=== PATIENT | female | born 1995 | race Caucasian/White ===

== ENCOUNTER 2022-02-02 10:52 | Emergency (ER) | payer OTHER, SELFPAY ==
[2022-02-02 11:07] VITALS: BP 122/74; PULSE 84; RESP 20; TEMP 36.8; O2SAT 99; BMI 22.1
[2022-02-02 11:14] LABS: Coronavirus 19, PCR Not Detected (NotDetected); Influenza A, PCR Not Detected (NotDetected); Influenza B, PCR Not Detected (NotDetected)
[2022-02-02 11:23] LABS: Strep Scrn Group A (Rapid) Negative (Negative)
--- NOTE | 2022-02-02 11:27 | [facility].EDGENADL ---
Discharge Plan Disposition Patient Disposition: Home, Self-Care Condition: Good Referrals Follow up/Referrals: Tommie Chan MD [Primary Care Provider] - See instructions Activity Restrictions/Add. Instructions Additional Instructions/Restrictions: Tylenol or ibuprofen for pain or fever. Follow-up with primary care provider if not improving within 1 week. Additional instructions for UPPER RESPIRATORY INFECTION: See your physician if not improving in 3-4 days or if worsening. Rest and drink plenty of fluids. Return immediately if you have an uncontrollable fever greater than 104 degrees, difficulty breathing or shortness of breath, persistent vomiting, or inability to swallow. Clinical Impressions Clinical Impression: Upper respiratory infection, viral Instructions Patient Instructions: DI for Viral Upper Respiratory Infection -- Adult Discharge ED Provider: Thanh Kennedy General Adult HPI General Chief complaint: Upper Respiratory Infection Stated complaint: sore throat, cough Time Seen by Provider: 02/02/22 11:15 Mode of Arrival: Ambulatory Source of Information: Patient Limitations: No Limitations Description of Symptoms (Recalled from ER Triage Doc. by RN): pt to ed c/o cough and runny nose x1 week History of Present Illness HPI narrative: The patient is being seen along with 2 of her children, all 3 having upper respiratory infection symptoms. The patient complains of a sore throat. No fever. She says that her brother tested positive for flu and COVID last week and she was exposed to him. Related Data Allergies Allergy/AdvReac Type Severity Reaction Status Date / Time No Known Allergies Allergy Verified 02/02/22 11:10 PFSH PFSH Social History Smoking Status: Never smoker ROS Obtained: Yes Systems reviewed as appropriate & no additional complaints except as documented Constitutional Constitutional: Denies fever(s) ENT Ears, Nose, Mouth, and Throat: Denies nasal discharge and Reports sore throat Physical Exam General General appearance: alert and in no apparent distress Head Head exam: atraumatic and normocephalic Eye Eye exam: Present normal appearance and EOMI; Absent conjunctival injection ENT ENT exam: Present normal oropharynx, mucous membranes moist and TM's normal bilaterally Neck Neck exam: Present normal inspection and trachea midline Chest Chest inspection: Present normal inspection and symmetric chest wall rise Respiratory Respiratory exam: Present normal lung sounds bilaterally; Absent respiratory distress Cardiovascular Cardiovascular exam: Present regular rate Neurological Exam Neurological exam: Present alert and oriented X3 Psychiatric Psychiatric exam: Present normal affect and normal mood Skin Skin exam: Present warm and dry Medical Decision Making [place] Inquiry Pt receiving controlled substance: No Vital Signs: 02/02/22 11:07 Temperature 98.3 F Temperature Source Oral Pulse Rate [Left Radial] 84 Respiratory Rate 20 Blood Pressure [Right Arm] 122/74 Blood Pressure Mean [Right Arm] 90 02 Sat by Pulse Oximetry 99 Lab Data Lab Results 02/02/22 11:05: Group A Strep Rapid Negative 02/02/22 11:05: SARS-CoV-2 (PCR) Not detected, Influenza A Untype (PCR) Not detected, Influenza Type B (PCR) Not detected Orders (Tests/Meds): ORDERS Category Date Time Status Rapid PCR Covid and Flu A/B Stat Lab 02/02/22 11:05 Completed Rapid Strep Scrn Group A [Strep Scrn Group A (Rapid)] Lab 02/02/22 11:05 Completed Stat Strep Screen Confirmation Stat Micro 02/02/22 11:05 Received Critical Care Time Critical Care Time Critical Care Time: No Attestation: On 02/02/22, the high probability of a clinically significant, sudden or life threatening deterioration of the following system(s) required my full and direct attention, intervention and personal management. The time I documented below is in addition to time spent performing repo
[2022-02-02 12:25] VITALS: BP 119/78; PULSE 80; RESP 20; TEMP 37; O2SAT 99
== END 2022-02-02 12:29 | disposition home or self-care (01) ==
PROVIDERS: Emergency Provider Emergency Medicine; PCP Family Medicine
DX: J06.9 Acute upper respiratory infection, unspecified (principal); J02.9 Acute pharyngitis, unspecified; U07.1 COVID-19; R09.81 Nasal congestion; R05.9 Cough, unspecified; Z86.16 Personal history of COVID-19
CPT/HCPCS: 87430; 99283; C9803; U0003; U0005